=== PATIENT | female | born 1980 | race African-American/Black ===

== ENCOUNTER 2018-02-03 13:19 | Emergency (ER) | payer OTHER ==
[~2018-02-03] VITALS: Ht 165.1 cm; Wt 70.8 kg
--- NOTE | 2018-02-03 13:38 | ED.ADGEN ---
Past History Past Medical History: No Pertinent History Past Surgical History: No Surgical History Smoking: Non-smoker Alcohol Use: None Drug Use: None Adult General Chief Complaint Chief Complaint Right thumb laceration HPI HPI She cut her right thumb with a knife while trying to open the toy an hour ago. She noted bleeding no numbness or decreased function of her right hand. She notes no other injury. Her last tetanus shot was within 5 years Review of Systems Review of Systems Constitutional: Denies fever or chills Eyes: Denies change in visual acuity, redness, or eye pain HENT: Denies nasal congestion or sore throat Respiratory: Denies cough or shortness of breath Cardiovascular: Denies chest pain or palpitations GI: Denies abdominal pain, nausea, vomiting, bloody stools or diarrhea : Denies dysuria or hematuria Musculoskeletal: Denies back pain or joint pain Integument: Denies rash or skin lesions, with right thumb laceration Neurologic: Denies headache, focal weakness or sensory changes Endocrine: Denies polyuria or polydipsia All other systems were reviewed and found to be within normal limits, except as documented in this note. Current Medications Current Medications Current Medications Medications (Trade) Dose Ordered Sig/Rach Start Time Stop Time Status Last Admin Dose Admin Lidocaine HCl 20 ml 1X ONCE 02/03/18 14:15 02/03/18 14:16 DC Lidocaine HCl (Lidocaine 1% Pf) 30 ml 1X ONCE 02/03/18 13:45 02/03/18 14:12 DC Lidocaine/ Epinephrine (Xylocaine 1%-Epi 1:100,000) 20 ml STK-MED ONCE 02/03/18 14:09 02/03/18 14:10 DC Allergies Allergies Allergies Coded Allergies Type Severity Reaction Last Updated Verified No Known Drug Allergies 02/03/18 No Physical Exam Physical Exam Constitutional: Well developed, well nourished, no acute distress, non-toxic appearance. HENT: Normocephalic, atraumatic, bilateral external ears normal, oropharynx moist, no oral exudates, nose normal. Eyes: PERRLA, EOMI, conjunctiva normal, no discharge. Neck: Normal range of motion, no tenderness, supple, no stridor. Cardiovascular:Heart rate regular rhythm, no murmur Lungs & Thorax: Bilateral breath sounds clear to auscultation Abdomen: Bowel sounds normal, soft, no tenderness, no masses, no pulsatile masses. Skin: Warm, dry, no erythema, no rash. with 4cm right dorsal thumb laceration Back: No tenderness, no CVA tenderness. Extremities: No tenderness, no cyanosis, no clubbing, ROM intact, no edema. Right thumb dorsal laceration 4cm with intact ROM and intact strength. Distal sensation intact to light touch and position sense. with normal thumb finger apposition. nail bed intact. Laceration doesn't involve thenar eminence. Neurologic: Alert and oriented X 3, normal motor function, normal sensory function, no focal deficits noted. Psychologic: Affect normal, judgement normal, mood normal. Current Patient Data Vital Signs Vital Signs Date Time Temp Pulse Resp B/P (MAP) Pulse Ox O2 Delivery O2 Flow Rate FiO2 02/03/18 15:00 74 20 127/69 (88) 100 Room Air 02/03/18 13:57 98.4 EKG EKG [] Radiology/Procedures Radiology/Procedures [] Course & Med Decision Making Course & Med Decision Making Emergency Department Course: Patient presents with right thumb laceration DDx- laceration, neurovascular injury, ligamentous injury, tendon injury. Patient was stable in the ED. Patient tolerated right thumb suture repair. DNVI. Patient will follow-up with PCP for wound check and suture removal. Final Impression Final Impression [] Dragon Disclaimer Dragon Disclaimer This electronic medical record was generated, in whole or in part, using a voice recognition dictation system. Laceration/Wound Repair Laceration/Wound Repair : Wound Location: upper extremity (right hand dorsal laceration 4cm) Wound's Depth, Shape: linear Wound Length (cm): 4 Wound Explored: clean Irrigated w/ Saline (ccs): 200 Betadine Prep?: Yes Anesthesia: Lidocaine w/ Epi Volume Anesthetic (ccs): 10 Wound Repaired With: sutures Suture Size/Type: 4:0, proline (simple interrupted) Number of Sutures: 5 Layer Closure?: No Sterile Dressing Applied?: Yes Progress Patient tolerated procedure well Departure Departure: Impression: Primary Impression: Laceration of right thumb Qualified Codes: S61.011A - Laceration without foreign body of right thumb without damage to nail, initial encounter Disposition: HOME, SELF-CARE Condition: STABLE Patient Instructions: Laceration Care, Adult Additional Instructions: Follow-up with your primary care doctor in 2 days for wound check and in 10 days for suture removal If he develop pain, swelling, redness, drainage, numbness, decreased range of motion, fevers return to the Emergency Department immediately JOAQUIN ERWIN MD Feb 03, 2018 13:38
[2018-02-03] MEDS ORDERED: LIDOCAINE 1% PF 30 ML VIAL. INJ ONE (13:45)
[2018-02-03 13:57] VITALS: BP 118/74
[2018-02-03] MEDS ORDERED: LIDOCAINE 1%/EPI 1:100,000 20 ML VIAL. ONE (14:09)
[2018-02-03] MEDS ORDERED: LIDOCAINE 2% 20 ML VIAL. IJ ONE (14:15)
== END 2018-02-03 15:00 | disposition home or self-care (01) ==
LOC: ER 13:19
DX: S61.011A Laceration without foreign body of right thumb without damage to nail, initial encounter (principal); W26.0XXA Contact with knife, initial encounter; Y93.89 Activity, other specified; Y92.89 Other specified places as the place of occurrence of the external cause; Y99.8 Other external cause status
CPT/HCPCS: 12001; 99283

== ENCOUNTER 2018-10-16 18:05 | Emergency (ER) | payer OTHER ==
[~2018-10-16] VITALS: Ht 165.1 cm; Wt 74.8 kg
[2018-10-16] MEDS ORDERED: diphenhydrAMINE 50 MG/ML VIAL IVP ONE (19:00)
[2018-10-16] MEDS ORDERED: BUTORPHANOL 2 MG VIAL. IV ONE (19:00)
[2018-10-16] MEDS ORDERED: KETOROLAC 30 MG/ML VIAL. IV ONE (19:00)
[2018-10-16] MEDS ORDERED: METOCLOPRAMIDE HCL 10 MG/2 ML VIAL. IV ONE (19:00)
[2018-10-16] MEDS ORDERED: BUTA1CAP31 PO (19:43)
--- NOTE | 2018-10-16 19:43 | PHYS DOC ---
Past History Past Medical History: Migraines Past Surgical History: No Surgical History Smoking: Non-smoker Alcohol Use: None Drug Use: None Adult General Chief Complaint Chief Complaint: HEADACHE HPI HPI Patient is a 38-year-old female who presents with complaint of severe headache that she rates at a 9 out of 10. Patient states that this is typical of her migraines. She states that the headache is throughout the full frontal region and describes it as throbbing. She reports to photophobia as well as nausea. She denies any vomiting or fever. Patient states that typically she takes Midrin for the headaches but does not have any Midrin. She states that nothing is improving the headache. Patient reports that headache started about 2 hours ago.[] Review of Systems Review of Systems Constitutional: Denies fever or chills [] Eyes: Denies change in visual acuity, redness, or eye pain [] Respiratory: Denies cough or shortness of breath [] Cardiovascular: No additional information not addressed in HPI [] GI: Denies abdominal pain. Admits to nausea without vomiting or diarrhea [] Neurologic: Complains of headache without focal weakness or sensory changes [] All other systems were reviewed and found to be within normal limits, except as documented in this note. Current Medications Current Medications Current Medications Medications (Trade) Dose Ordered Sig/Rach Start Time Stop Time Status Last Admin Dose Admin Butorphanol Tartrate (Stadol) 1 mg 1X ONCE 10/16/18 19:00 10/16/18 19:01 DC 10/16/18 19:15 1 MG Diphenhydramine HCl (Benadryl) 25 mg 1X ONCE 10/16/18 19:00 10/16/18 19:01 DC 10/16/18 19:15 25 MG Ketorolac Tromethamine (Toradol 30mg Vial) 30 mg 1X ONCE 10/16/18 19:00 10/16/18 19:01 DC 10/16/18 19:14 30 MG Metoclopramide HCl (Reglan Vial) 10 mg 1X ONCE 10/16/18 19:00 10/16/18 19:01 DC 10/16/18 19:14 10 MG Allergies Allergies Allergies Coded Allergies Type Severity Reaction Last Updated Verified No Known Drug Allergies 02/03/18 No Physical Exam Physical Exam Constitutional: Well developed, well nourished, in mild distress, non-toxic appearance. [] HENT: Normocephalic, atraumatic, bilateral external ears normal, oropharynx moist, no oral exudates, nose normal. [] Eyes: PERRLA, EOMI, conjunctiva normal, no discharge. [] Neck: Normal range of motion, no tenderness, supple, no stridor. [] Cardiovascular: Regular rate and rhythm[] Lungs & Thorax: Bilateral breath sounds clear to auscultation [] Abdomen: Bowel sounds normal, soft, no tenderness. [] Skin: Warm, dry, no erythema, no rash. [] Extremities: No tenderness, no cyanosis, no clubbing, ROM intact. [] Neurologic: Alert and oriented X 3, no focal deficits noted. [] Current Patient Data Vital Signs Vital Signs Date Time Temp Pulse Resp B/P (MAP) Pulse Ox O2 Delivery O2 Flow Rate FiO2 10/16/18 19:15 16 100 Room Air 10/16/18 18:33 98.0 78 EKG EKG [] Radiology/Procedures Radiology/Procedures [] Course & Med Decision Making Course & Med Decision Making Pertinent Labs and Imaging studies reviewed. (See chart for details) [] Dragon Disclaimer Dragon Disclaimer This electronic medical record was generated, in whole or in part, using a voice recognition dictation system. Departure Departure: Impression: Primary Impression: Migraine Disposition: 01 HOME, SELF-CARE Condition: STABLE Referrals: MELANIE JAMA (PCP) Patient Instructions: Migraine Headache Scripts Butalbital/Aspirin/Caffeine (FIORINAL 50-325-40 MG CAPSULE) 1 Each Capsule 1 EACH PO Q6HRS PRN for HEADACHE, #20 CAP Prov: BENSON CESPEDES Jr. DO 10/16/18 Problem Qualifiers Primary Impression: Migraine Migraine type: unspecified Status migrainosus presence: without status mi grainosus Intractability: not intractable Qualified Codes: G43.909 - Migraine, unspecified, not intractable, without status migrainosus BENSON CESPEDES Jr. DO Oct 16, 2018 19:43
[2018-10-16 20:32] VITALS: BP 120/76
== END 2018-10-16 20:33 | disposition home or self-care (01) ==
LOC: ER 18:05
DX: G43.909 Migraine, unspecified, not intractable, without status migrainosus (principal)
CPT/HCPCS: 96374; 96375; 99284; J0595; J1200; J1885; J2765